=== PATIENT | female | born 1960 | race Caucasian/White ===

== ENCOUNTER 2019-01-22 05:45 | Day surgery (SDC) | payer OTHER ==
[~2019-01-22] VITALS: Ht 165.1 cm; Wt 65.8 kg
[~2019-01-22 05:45] MED LIST: SUMATRIPTAN SU100 MG PO
--- NOTE | 2019-01-22 08:56 | NUR ---
01/22/19 0856 Norma Barragan 0820 PT ARRIVED IN PACU NON RESPONSIVE WITH OPA IN PLACE. L HAND/FOOT ELEVATED AND ICE PLACED. 0833 PT REACTIVE. NO C/O'S. 0845 C/O URGE TO VOID. TO ROOM 10. UP TO BATHROOM WITH ONE PERSON ASSIST. VOIDED. BACK IN BED. CALL LITE IN PLACE. REPORT GIVEN TO RN.
--- NOTE | 2019-01-22 10:02 | NUR ---
0845 PT BACK TO ROOM FROM PACU AWAKE AND ALERT DENIES PAIN AND NAUSEA. PT UP TO THE BATHROOM WITH MIN HELP UPON ARRIVAL. 0900 PT EATING PUDDING AND DRINKING WATER TOLERATES WELL. 0945 PT DENIES PAIN TO HAND OR FOOT BUT REPORTS MILD HEADACHE SHE STATES SHE IS PRON TO HEADACHES AND ASKED SHE COULD TAKE [facility] WHEN GETS HOME. ADVISED HER TO TAKE HEAD ACHE MED. 1000 PT REPORTS READINESS TO GO HOME AT BEDSIDE DISCHARGE INSTRUCTIONS GIVEN TO PT AND BOTH VOICED UNDERSTANDING
--- NOTE | 2019-01-29 07:19 | OR ---
[facility] [address] [place], [place] [address] Signed DATE OF OPERATION: 01/22/2019 SURGEON: Flash Maldonado MD PREOPERATIVE DIAGNOSES: 1. Giant cell tumor, left long finger. 2. Ganglion cyst, flexor tendon, left 3rd metatarsophalangeal joint and osteoarthritis of the right acromioclavicular joint. PROCEDURES: 1. Excision of giant cell tumor of tendon sheath, left long finger. 2. Excision of ganglion cyst, left 3rd toe under the MTP joint and injection of the right AC joint. ANESTHESIA: General. SPECIMENS AND COMPLICATIONS: There were no specimens or complications. TOURNIQUET TIME: On the hand was about 50 minutes, about the same on the foot. WHAT WAS DONE: The patient was taken to the operating room. After anesthesia was induced and airway secured, the left upper extremity was positioned, prepped and draped in a routine sterile fashion. The arm was exsanguinated with an Esmarch bandage. Pneumatic tourniquet was inflated to 250 mmHg pressure. We then made a small transverse incision at the level of the MCP flexion crease over the left long finger. The skin was divided sharply. Subcutaneous tissue was bluntly spread. The mass was located directly subcutaneously. I gently excised it and was removed as a single fragment. It was a rather classical giant-cell tumor. The wound was irrigated and closed with 4-0 nylon. Sterile dressing was applied and the pneumatic tourniquet was released. We then prepped and draped the left foot. Again, the leg was exsanguinated with elevation and pneumatic tourniquet was inflated to 300 mmHg. We made a dorsal incision over the 3rd MTP joint. Skin was divided sharply. Subcutaneous tissue was bluntly spread. The extensor tendon was mobilized and retracted laterally. We then opened the joint dorsally and subluxed the joint in a plantar direction. We used a small rongeur to reach through the MTP joint to remove the ganglion cyst on the flexor tendon. The wound was gently irrigated and closed in a standard fashion. A sterile dressing was applied to the foot. We then Electronically Signed By: FLASH MALDONADO MD 01/29/19 0719 PATIENT NAME: ALLAN HOLLIDAY OPERATIVE REPORT DATE OF : 62 REPORT #: [id number] PHYSICIAN: FLASH MALDONADO MD PCP: LINDA BAUMANN MD REPORT IS CONFIDENTIAL AND NOT TO BE RELEASED WITHOUT AUTHORIZATION [facility] [address] [place], [place] [address] Signed prepped the right acromioclavicular joint and injected it with 1 mL of 1% plain xylocaine and 1 mL of triamcinolone acetate, which seemed to completely distend the joint. A band-aid was applied. The patient was awakened, taken to recovery room where she arrived in stable condition. Counts were correct and antibiotic protocols were followed. MD YOSELIN AsencioB/HARIL /[id number] Copies: ~ Electronically Signed By: FLASH MALDONADO MD 01/29/19 0719 PATIENT NAME: MGALLAN MATY OPERATIVE REPORT DATE OF : 62 REPORT #: [id number] PHYSICIAN: FLASH MALDONADO MD PCP: LINDA BAUMANN MD REPORT IS CONFIDENTIAL AND NOT TO BE RELEASED WITHOUT AUTHORIZATION
== END 2019-01-22 10:00 | disposition home or self-care (01) ==
LOC: DS 05:45 → OPS 05:45 → DS 06:45 → OPS 06:45
PROVIDERS: Orthopaedic Surgery
PROC: 0LBW0ZZ Excision of Left Foot Tendon, Open Approach (ICD-10-PCS; 2019-01-22)
PROC: 3E0U3BZ Introduction of Anesthetic Agent into Joints, Percutaneous Approach (ICD-10-PCS; 2019-01-22)
PROC: 3E0U33Z Introduction of Anti-inflammatory into Joints, Percutaneous Approach (ICD-10-PCS; 2019-01-22)
PROC: 0JBK0ZZ Excision of Left Hand Subcutaneous Tissue and Fascia, Open Approach (ICD-10-PCS; principal; 2019-01-22 06:45)
DX: D48.1 Neoplasm of uncertain behavior of connective and other soft tissue (principal); M67.472 Ganglion, left ankle and foot; G43.909 Migraine, unspecified, not intractable, without status migrainosus; M19.011 Primary osteoarthritis, right shoulder; Z88.2 Allergy status to sulfonamides; Z88.8 Allergy status to other drugs, medicaments and biological substances
CPT/HCPCS: 01830; J0690; J1100; J1885; J2405; J2704; J3010; J3301

== ENCOUNTER 2021-09-05 13:19 | Emergency (ER) | payer OTHER ==
[~2021-09-05] VITALS: Ht 165.1 cm; Wt 61.2 kg
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
[2021-09-05] MEDS ORDERED: ONDANSETRON ODT8 MG PO (16:26)
== END 2021-09-05 17:44 | disposition home or self-care (01) ==
LOC: ED 13:19
DX: S06.0X0A Concussion without loss of consciousness, initial encounter (principal); G43.909 Migraine, unspecified, not intractable, without status migrainosus; Z88.2 Allergy status to sulfonamides; Z88.8 Allergy status to other drugs, medicaments and biological substances; V48.9XXA Unspecified car occupant injured in noncollision transport accident in traffic accident, initial encounter
CPT/HCPCS: 70450; 99283-25; A9270

== ENCOUNTER 2022-02-03 06:15 | Day surgery (SDC) | payer BC, OTHER ==
[~2022-02-03] VITALS: Ht 165.1 cm; Wt 63.7 kg
[~2022-02-03 06:15] MED LIST changes: +ONDANSETRON ODT8 MG PO
[2022-02-03] MEDS ORDERED: EMGALITY120 MG/1 M SUB-Q (06:38)
--- NOTE | 2022-02-03 08:51 | NUR ---
02/03/22 0851 Ruby Caraballo 0834- PT ARRIVES TO PACU AROUSABLE TO VOICE. PT REPORTS NO PAIN OR NAUSEA. PT FALLS BACK TO SLEEP. RESP EVEN AND UNLABORED. OXYGEN SAT HIGH 90'S TO 100% ON RA.
--- NOTE | 2022-02-03 16:06 | NUR ---
PT ALERT, ORIENTED AND PASSING THE TIME BY READING A BOOK. PT HAS HAD SCOPE PREVIOUS. GAVE ENCOURAGEMENT, PT REQUESTED PRAYER. [facility] WILL FOLLOW
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
--- NOTE | 2022-02-07 07:35 | PATH ---
[facility] [address] [facility] [place] [address] Signed SPECIMEN(S): A POLYP AT 5 CM SPECIMEN SOURCE: A. POLYP AT 5 CM CLINICAL HISTORY: Negative colonoscopy in 2011. Postop diagnosis: Melanosis coli; diverticulosis; polyp x 1; internal anal skin tag FINAL PATHOLOGIC DIAGNOSIS: Colon, 5 cm, polypectomy: - Hyperplastic polyp. - There is no evidence of dysplasia or malignancy. TWK:em:C2NR MICROSCOPIC EXAMINATION: Histologic sections of all submitted blocks are examined by light microscopy. These findings, together with the gross examination, support the pathologic diagnosis. GROSS DESCRIPTION: The specimen, labeled "CW #1," is received in formalin and consists of one palomo soft tissue fragment that measures 0.2 cm in greatest dimension. The specimen is entirely submitted in cassette (A1). KV (under the direct supervision of a pathologist) The Gross Description was prepared using a voice recognition system. The report was reviewed for accuracy; however, sound-alike word errors, addition and/or deletions may occur. If there is any question about this report, please contact Client Services. PERFORMING LABORATORY: The technical component was performed by [facility], [address] [place] [id number] (CLIA# [id number]). The professional interpretation was performed by [facility], [facility], [address] [place] [address] (CLIA#: [id number]). Diagnostician: Manas Simpson MD Pathologist Electronically Signed 02/04/2022 PATIENT NAME: ALLAN HOLLIDAY PATHOLOGY DATE OF : 62 REPORT #: [id number] PHYSICIAN: JULIA PATHOLOGY PCP: ERNESTO ESTES MD REPORT IS CONFIDENTIAL AND NOT TO BE RELEASED WITHOUT AUTHORIZATION [address] [place], [place] [address] Signed Copies: ~ PATIENT NAME: ALLAN HOLLIDAY PATHOLOGY DATE OF : 62 REPORT #: [id number] PHYSICIAN: JULIA PATHOLOGY PCP: ERNESTO ESTES MD REPORT IS CONFIDENTIAL AND NOT TO BE RELEASED WITHOUT AUTHORIZATION
== END 2022-02-03 09:30 | disposition home or self-care (01) ==
LOC: DS 06:15
PROVIDERS: ATTEND Colon & Rectal Surgery
PROC: 0DBE8ZZ Excision of Large Intestine, Via Natural or Artificial Opening Endoscopic (ICD-10-PCS; principal; 2022-02-03 08:15)
DX: Z12.11 Encounter for screening for malignant neoplasm of colon (principal); K63.5 Polyp of colon; K56.2 Volvulus; K57.30 Diverticulosis of large intestine without perforation or abscess without bleeding; K64.4 Residual hemorrhoidal skin tags; I95.9 Hypotension, unspecified; I10 Essential (primary) hypertension; Z20.822 Contact with and (suspected) exposure to COVID-19
CPT/HCPCS: 99153; G0500; J2250; J3010; J7121; U0003

== ENCOUNTER 2024-10-04 07:20 | Day surgery (SDC) | payer BC, OTHER ==
[~2024-10-04] VITALS: Ht 165.1 cm; Wt 72.7 kg
[~2024-10-04 07:20] MED LIST changes: +CEFAZOLIN SODIUM 2 GM/20 ML SYR IV SCH; +DIALYVITE 5000 T5 MG PO; +EMGALITY120 MG/1 M SQ; +EMGALITY120 MG/1 M SUB-Q; +IBLOOD GLUCOSE TEST STRIP 1 EA TEST VI PRN; +KETOROLAC TROMETHAMINE 30 MG/ML VIAL ONE; +L-LYSINE500 M1 PO; +LACTATED RINGER'S 1,000 ML IV SCH; +LIDOCAINE HCL 1% 5 ML SDV INJ ONE; +MULTI VITAMIN1 EACH
[2024-10-04 07:38] VITALS: BP 113/57
[2024-10-04] MEDS ORDERED: HYDROCODONE/ACETA 5/325 TAB PO PRN (08:15)
[2024-10-04] MEDS ORDERED: KETOROLAC TROMETHAMINE 15 MG/ML VIAL IV PRN (08:15)
[2024-10-04] MEDS ORDERED: fentaNYL citrate 100 MCG/2 ML VIAL ONE (08:36)
[2024-10-04] MEDS ORDERED: propofoL 200 MG/20 ML VIAL ONE (08:37)
[2024-10-04] MEDS ORDERED: KETOROLAC TROMETHAMINE 30 MG/ML VIAL ONE (08:37)
[2024-10-04] MEDS ORDERED: DEXAMETHASONE SOD PHOS 4 MG/ML VIAL ONE (08:37)
[2024-10-04] MEDS ORDERED: ondansetron HCL 4 MG/2 ML VIAL ONE (08:37)
[2024-10-04] MEDS ORDERED: ACETAMINOPHEN 1,000 MG/100 ML VIAL ONE (08:37)
[2024-10-04] MEDS ORDERED: LIDOCAINE HCL 2% 5 ML SDV ONE (08:37)
[2024-10-04] MEDS ORDERED: ePHEDrine sulfate 50 MG/ML AMP ONE (08:59)
[2024-10-04] MEDS ORDERED: DICLOFENAC SODI75 MG PO (09:09)
[2024-10-04] MEDS ORDERED: HYDROCODON-ACE1 EA10 PO (09:10)
[2024-10-04] MEDS ORDERED: droPERidol 5 MG/2 ML VIAL IV PRN (09:15)
[2024-10-04] MEDS ORDERED: NALOXONE HCL 0.4 MG SYR IV PRN (09:15)
[2024-10-04] MEDS ORDERED: ondansetron HCL 4 MG/2 ML VIAL IV PRN (09:15)
[2024-10-04] MEDS ORDERED: IBLOOD GLUCOSE TEST STRIP 1 EA TEST VI PRN (09:15)
[2024-10-04] MEDS ORDERED: fentaNYL citrate 50 MCG/ML SDV IV PRN (09:15)
--- NOTE | 2024-10-04 09:22 | NUR ---
10/04/24 0922 Marissa Childers 0912 PT TO PACU AWAKE AND ALERT COMPLAINING OF BAD TASTE IN MOUTH, ASKING FOR WATER. PT TAKING SIPS OF WATER TOLERATES WELL.
--- NOTE | 2024-10-04 09:34 | OR ---
[facility] [address] [place], [place] [address] Signed DATE OF OPERATION: 10/04/2024 SURGEON: Bo Childers MD PREOPERATIVE DIAGNOSIS: Medial and lateral meniscus tears, right knee. POSTOPERATIVE DIAGNOSIS: Medial and lateral meniscus tears, right knee. PROCEDURE PERFORMED: Right knee arthroscopy with partial, medial and lateral meniscectomies. QM CONSULTANT: None. ANESTHESIA: General. BLOOD LOSS: Minimal. BRIEF HISTORY: Allan is a 64-year-old female with pain and instability in her knee. MRI was consistent with the above. Risks, benefits, and alternatives of surgery were discussed with her and she elected to proceed. Once consent was obtained she was taken to the operating room. After adequate anesthesia she was placed on operating room table. All downside pressure points were padded. Left leg was flexed, abducted, and externally rotated on a well-padded leg myers. Right was placed in well-padded leg myers. No tourniquet was used. The right leg was prepped and draped in a standard sterile fashion. The portal sites were injected with 0.25% Marcaine with epinephrine. Standard inferolateral and superolateral portals were made. The scope was introduced in the knee. ARTHROSCOPIC FINDINGS: The knee showed mild synovitis throughout. The patella and trochlea demonstrated grade 1 to slight grade 2 chondromalacia. Medial and lateral gutters were clear. ACL and PCL were intact. Both the medial and lateral compartments showed no significant chondromalacia. There were small radial tears on both sides. Electronically Signed By: BO CHILDERS MD 10/04/24 0934 PATIENT NAME: ALLAN HOLLIDAY OPERATIVE REPORT DATE OF : 62 REPORT #: [id number] PHYSICIAN: BO CHILDERS MD PCP: ERNESTO ESTES MD REPORT IS CONFIDENTIAL AND NOT TO BE RELEASED WITHOUT AUTHORIZATION [facility] [address] [facility] [place] [place] [address] Signed DESCRIPTION OF OPERATION: Standard inferomedial portal was made after localization using a spinal needle. The straight and curved biters were then used to trim and further out the tears on both sides. These were then smoothed using shaver and all debris was evacuated. Scope was then withdrawn. Portals were closed with 3-0 nylon and the knee was injected with 60 mg Toradol. The wounds were dressed with Adaptic, ABD, and Bhupinder wrap. She tolerated the procedure well. All sponge, needle, and instrument counts correct. Bo Childers MD BA/HARIL /[id number] Copies: ~ Electronically Signed By: BO CHILDERS MD 10/04/24 0934 PATIENT NAME: ALLAN HOLLIDAY OPERATIVE REPORT DATE OF : 62 REPORT #: [id number] PHYSICIAN: BO CHILDERS MD PCP: ERNESTO ESTES MD REPORT IS CONFIDENTIAL AND NOT TO BE RELEASED WITHOUT AUTHORIZATION
[2024-10-04 09:36] VITALS: BP 111/66
--- NOTE | 2024-10-04 09:57 | NUR ---
8584 PT ARRIVED TO DAY SURGERY FROM PACU VIA [employer]. PT AWAKE AND ORIENTED, PT SIPPING ON WATER. PT REPORTS NO PAIN AT THIS TIME, PT REPORTS NO NAUSEA AT THIS TIME. PT SPOUSE IN ROOM. PT HAS JELLO AT BEDSIDE. IV ASSESSED. VITALS TAKEN. PT RESTING COMFORTABLY IN BED WITH PERSONAL ITEMS WITHIN REACH. PT BED IS LOW AND LOCKED AND CALL LIGHT WITHIN REACH.
--- NOTE | 2024-10-04 10:08 | NUR ---
1005 PT STATES SHE FEELS LIKE SHE NEEDS TO URINATE. PT ABLE TO AMBULATE TO BATHROOM AND VOID 100 MLS OF CLEAR YELLOW URINE. PT ABLE TO AMBULATE BACK TO ROOM WITH EVEN AND STEADY GAIT. PT REPORTS NO PAIN AT THIS TIME. PT BACK IN BED WITH CALL LIGHT WITHIN REACH. BED LOW AND LOCKED.
[2024-10-04 10:20] VITALS: BP 117/71
--- NOTE | 2024-10-04 10:41 | NUR ---
1015 PT GETTING DRESSED IN ROOM WITH 'S ASSISTANCE. 1020 DISCHARGE INFORMATION GONE OVER WITH PT AND SPOUSE. NO QUESTIONS AT THIS TIME. VITALS TAKEN. PT REPORTS NO PAIN OR NAUSEA AT THIS TIME. 1030 IV REMOVED FOR DISCHARGE. 1035 PT DISCHARGED FROM DAY SURGERY VIA WHEELCHAIR. PT SITTING UPRIGHT IN WHEELCHAIR, PT REPORTS NO PAIN WHILE AMBULATING TO WHEELCHAIR. PT WHEELED TO THE FRONT OF THE HOSPITAL TO PT'S SPOUSE'S CAR.
[2024-10-04] MEDS ORDERED: SEVOFLURANE 250 ML BTL INH ONE (15:24)
[2024-10-07] MEDS ORDERED: DICLOFENAC SOD 75 MG TABEC PO SCH (09:00)
== END 2024-10-04 10:35 | disposition home or self-care (01) ==
LOC: DS 07:20
PROVIDERS: ATTEND Specialist
PROC: 0SBC4ZZ Excision of Right Knee Joint, Percutaneous Endoscopic Approach (ICD-10-PCS; 2024-10-04)
PROC: 0SBC4ZZ Excision of Right Knee Joint, Percutaneous Endoscopic Approach (ICD-10-PCS; principal; 2024-10-04 09:15)
DX: S83.281A Other tear of lateral meniscus, current injury, right knee, initial encounter (principal); S83.241A Other tear of medial meniscus, current injury, right knee, initial encounter; Z88.2 Allergy status to sulfonamides; Z88.8 Allergy status to other drugs, medicaments and biological substances; Z79.899 Other long term (current) drug therapy; X58.XXXA Exposure to other specified factors, initial encounter
CPT/HCPCS: 01400; J0131; J1100; J1885; J2003; J2405; J2704; J3010; J7121